=== PATIENT | male | born 1990 | race African-American/Black ===

== ENCOUNTER → 2019-11-01 | Outpatient (CLI) | payer OTHER ==
[~2019-11-01] MED LIST: E-Z-GAS II EFFERVESCENT PACKET (SODIUM BICARB./CITRIC ACID/SIMETHICONE) As Ordered ONE; E-Z-HD 98% w/w 340GM SUSP BTL As Ordered ONE; E-Z-PAQUE 96% w/w SUSP 176GM BTL As Ordered ONE
--- NOTE | 2019-11-01 15:45 | REP ---
Esophagram The procedure was performed under the direct supervision of Dr. Jones. The images were reviewed with Dr. Jones. A single view PA chest x-ray is submitted as a director of manufacturing operations film. The superior mediastinal structures are midline. The heart size is within normal limits. The lungs are clear. Liquid barium and gas producing granules were given in the erect position as well as liquid barium in the prone oblique positions in order to perform a double contrast esophagram examination. The oral and pharyngeal stages of deglutition are unremarkable. Esophageal transport is prompt and efficient and there is no esophagitis, stricture, mucosal ring or hiatal hernia. Gastroesophageal reflux is not demonstrated on this examination. Impression: Unremarkable double contrast esophagram examination. 4.6 minutes of fluoro time was utilized for this procedure. Electronically Signed by EULALIA Anderson 11/01/2019 03:34 P Electronically Signed by Augie Jones MD 11/01/2019 03:36 P
== END ==
LOC: M RAD 07:59
PROVIDERS: ATTEND Physician Assistant
DX: R13.10 Dysphagia, unspecified (principal)